=== PATIENT | female | born 1980 | race Caucasian/White ===

== ENCOUNTER 2016-12-04 14:46 | Emergency (ER) | payer MEDICAID ==
[~2016-12-04] VITALS: Ht 162.6 cm; Wt 141.1 kg
[~2016-12-04 14:46] MED LIST: CELE200C PO; DIPH25CA61 PO; DULO30CA2 PO; LAMO25TA PO; METH500T7 PO; SUMA25TA3 PO
[2016-12-04 14:49] VITALS: BP 133/81
[2016-12-04] MEDS ORDERED: HYDROmorphone 1 MG/ML, 1ML IM ONE (16:30)
[2016-12-04] MEDS ORDERED: ONDANSETRON ODT 4 MG PO ONE (16:30)
[2016-12-04] MEDS ORDERED: DEXAMETHASONE 4 MG/ML, 1ML IM ONE (16:30)
[2016-12-04] MEDS ORDERED: HYDROmorphone 1 MG/ML, 1ML ONE (16:32)
[2016-12-04] MEDS ORDERED: ONDANSETRON ODT 4 MG ONE (16:32)
[2016-12-04] MEDS ORDERED: DEXAMETHASONE 4 MG/ML, 5ML ONE (16:33)
== END 2016-12-04 17:40 | disposition home or self-care (01) ==
LOC: ED 16:58
DX: M51.26 Other intervertebral disc displacement, lumbar region (principal); M54.12 Radiculopathy, cervical region; G43.909 Migraine, unspecified, not intractable, without status migrainosus; M54.2 Cervicalgia; G89.29 Other chronic pain
CPT/HCPCS: 96372; 99284; J1100; J1170; Q0162

== ENCOUNTER 2016-12-24 14:13 | Emergency (ER) | payer MEDICAID ==
[~2016-12-24] VITALS: Ht 162.6 cm; Wt 140.7 kg
[2016-12-24 14:23] VITALS: BP 119/76
== END 2016-12-24 15:31 | disposition home or self-care (01) ==
LOC: ED 15:15
DX: G89.29 Other chronic pain (principal); M54.2 Cervicalgia; M54.9 Dorsalgia, unspecified
CPT/HCPCS: 99283

== ENCOUNTER 2017-01-02 13:20 | Emergency (ER) | payer MEDICAID ==
[2017-01-02] MEDS ORDERED: HYDROcodone/APAP 5/325 TABLET ONE (15:39)
[2017-01-02] MEDS ORDERED: METHOCARBAMOL 750 MG TABLET ONE (15:40)
== END 2017-01-02 16:38 | disposition home or self-care (01) ==
LOC: ED 13:20
DX: G89.29 Other chronic pain (principal); M54.5 Low back pain; M54.2 Cervicalgia; M47.892 Other spondylosis, cervical region; M48.02 Spinal stenosis, cervical region; M54.12 Radiculopathy, cervical region
CPT/HCPCS: 99283

== ENCOUNTER 2017-01-07 12:02 | Emergency (ER) | payer MEDICAID ==
[~2017-01-07] VITALS: Ht 162.6 cm; Wt 141.7 kg
[2017-01-07 12:09] VITALS: BP 131/73
== END 2017-01-07 13:39 | disposition home or self-care (01) ==
LOC: ED 13:33
DX: M48.02 Spinal stenosis, cervical region (principal)
CPT/HCPCS: 93005; 99283

== ENCOUNTER 2017-03-29 11:14 | Emergency (ER) | payer MEDICAID ==
[~2017-03-29] VITALS: Ht 162.6 cm; Wt 140.0 kg
[2017-03-29] MEDS ORDERED: SODIUM CHLORIDE 0.9% 1,000 ML IV ONE (12:06)
[2017-03-29] MEDS ORDERED: SODIUM CHLORIDE FLUSH 10ML SYR IVF ONE (12:30)
[2017-03-29] MEDS ORDERED: SODIUM CHLORIDE 0.9% 1,000ML IVBOLUS ONE (12:30)
[2017-03-29] MEDS ORDERED: ONDANSETRON 2MG/ML, 2ML IVPush ONE (12:30)
[2017-03-29 12:41] LABS: HEMATOCRIT 39.9 % (34.6-47.8); HEMOGLOBIN 13.1 g/dL (11.7-16.4); WHITE BLOOD COUNT 10.4 x10^3/uL (3.4-10)
[2017-03-29] MEDS ORDERED: ONDANSETRON 2MG/ML, 2ML ONE (12:47)
[2017-03-29 12:48] LABS: ASPARTATE AMINO TRANSFERASE 17 U/L (15-37); BLOOD UREA NITROGEN 18 mg/dL (7-18)
[2017-03-29] MEDS ORDERED: OMNIPAQUE 350 MG/ML, 150 ML BOTTLE ONE (13:52)
[2017-03-29 16:17] VITALS: BP 128/80
== END 2017-03-29 17:12 | disposition home or self-care (01) ==
LOC: ED 12:43
DX: K52.9 Noninfective gastroenteritis and colitis, unspecified (principal)
CPT/HCPCS: 36415; 74177; 80053; 81003; 83605; 83690; 84703; 85025; 85610; 85730; 87040; 96361; 96374; 99285; J2405; J7030; Q9967